=== PATIENT | female | born 1975 | race Caucasian/White ===

== ENCOUNTER 2016-12-05 21:14 | Emergency (ER) | payer BC ==
[~2016-12-05] VITALS: Ht 162.6 cm; Wt 82.0 kg
[2016-12-05 21:19] VITALS: Ht 162.6 cm; Wt 82.0 kg
[2016-12-05] MEDS ORDERED: LOSA1TAB19 PO (21:57)
--- NOTE | 2016-12-05 22:21 | ERD ---
ER Documentation Chief Complaint Date/Time DATE: 12/05/16 TIME: 22:16 Chief Complaint pt is non compliant with HTN HPI This is a 41-year-old female presenting to emergency department for hypertension. Patient was seen earlier by her primary care provider and was told to go to the ER for hypertension management. Patient has been on losartan 50 mg in the past however has not taken it in the past 6 months. Patient went in for a Pap smear and the appointment was canceled due to patient's blood pressure. Upon arrival, patient's blood pressure 180/95 mm Hg. Patient denies headache, dizziness or weakness. Denies chest pain, shortness of breath , difficulty breathing, chest pressure or heart palpitations. Patient states " I feel good." Patient states she has an appointment with her primary care provider tomorrow afternoon. Patient's daughter is here during assessment. ROS All systems reviewed and are negative except as per history of present illness. Medications Home Meds Active Scripts Losartan-Hydrochlorothiazide (Losartan-HCTZ) 50-12.5 Mg Tab, 1 TAB PO DAILY, #5 TAB Prov:WALLY VIVAR NP 12/05/16 Allergies Allergies: Coded Allergies: No Known Allergy (Verified Allergy, Unknown, 03/23/07) Physical Exam Vitals Vital Signs Date Time Temp Pulse Resp B/P Pulse Ox O2 Delivery O2 Flow Rate FiO2 12/05/16 21:19 98.3 92 16 180/95 97 Physical Exam Const: no acute distress, alert Head: Atraumatic Eyes: Normal Conjunctiva ENT: Normal External Ears, Nose and Mouth. Neck: Full range of motion..~ No meningismus. Resp: Clear to auscultation bilaterally. No wheezing, rhonchi or crackles Cardio: Regular rate and rhythm, no murmurs Abd: Soft, non tender, non distended. Normal bowel sounds Skin: No petechiae or rashes Back: No midline or flank tenderness Ext: No cyanosis, or edema Neur: Awake and alert Psych: Normal Mood and Affect Procedures/MDM MDM: 41-year-old female presents emergency department for hypertension management. Patient has been off her hypertension medication losartan 50 mg for the past 6 months. Was seen by her primary care provider today and appointment was canceled and patient was told to go the ER for management. No signs or symptoms of respiratory distress. Vital signs are stable. Blood pressure 180/95 mmHg however patient denies chest pain, chest pressure, heart palpitations, shortness of breath, difficulty breathing, headache, neck pain, confusion, dizziness or fatigue. Patient is asymptomatic at this time. Low suspicion for acute WI, CVA, TIA, hypertensive crisis, intracranial hemorrhage. Patient's diagnosis is hypertension. Patient is appropriate for outpatient management will be given prescription for losartan HCTZ 50 mg #5. Patient states she has an appointment tomorrow afternoon with her primary care provider. Patient's daughter is at bedside and states she is going to the appointment with her. Return to ED for any high fever, chest pain, difficulty breathing, shortness breath, wheezing, vomiting, diarrhea, abdominal pain or any new or worsening symptoms. Patient and patient' s daughter verbalize understanding. All questions answered at discharge. Upper Sorbian translation used during this encounter. Departure Diagnosis: Primary Impression: Hypertension Hypertension type: unspecified secondary hypertension Qualified Code: I15.9 - Secondary hypertension Condition: Stable Patient Instructions: High Blood Pressure (Hypertension) Referrals: ZARA EMERY (PCP) Additional Instructions: Llame al doctor MAANA y anders mara YECENIA PARA DENTRO DE 2-3 CORDERO.Dgale a la secretaria que nosotros le instruimos hacer esta yecenia.Avise o llame si perez condicin se empeora antes de la yecenia. Regresa aqui si peor o no mejor. WALLY VIVAR NP Dec 05, 2016 22:21
== END 2016-12-05 21:57 | disposition home or self-care (01) ==
LOC: E/R 21:14
DX: I15.9 Secondary hypertension, unspecified (principal)
CPT/HCPCS: 99283

== ENCOUNTER 2017-06-05 03:40 | Inpatient (IN) | payer BC ==
[~2017-06-05] VITALS: Ht 149.9 cm; Wt 88.3 kg
[~2017-06-05 03:40] MED LIST: LOSA1TAB22 PO
[2017-06-05 04:17] VITALS: BP 210/108; PULSE 109; RESP 18
[2017-06-05] MEDS ORDERED: LABETALOL HCL 20MG INJ IV STA ×3 (04:18→09:28)
[2017-06-05] MEDS ORDERED: MAGNESIUM SULFATE 20 GM/500 ML 500 ML IV ONE (04:20)
[2017-06-05] MEDS ORDERED: LABETALOL HCL 20MG INJ ONE (04:20)
[2017-06-05] MEDS ORDERED: MAGNESIUM SULFATE 4 GM/100 ML 100 ML ONE (04:20)
[2017-06-05] MEDS: LACTATED RINGER'S 1,000 ML IV SCH ×3 (04:29→23:55)
[2017-06-05] MEDS ORDERED: ACETAMINOPHEN 1000MG/100ML IV 100 ML IVPB ONE (04:30)
[2017-06-05] MEDS ORDERED: MAGNESIUM SULFATE 4 GM/100 ML 100 ML IV ONE (04:30)
[2017-06-05] MEDS ORDERED: BETAMET NA PHOS/AC(6 MG/ML) 5ML INJ IM SCH ×3 (04:30→17:00)
[2017-06-05] MEDS ORDERED: ACETAMINOPHEN 325 MG TAB PO PRN (04:30)
[2017-06-05] MEDS: MAGNESIUM SULFATE 20 GM/500 ML 500 ML IV SCH ×2 (04:55→14:56)
[2017-06-05] MEDS ORDERED: LABETALOL HCL 20MG INJ IV ONE ×2 (05:00→05:30)
--- NOTE | 2017-06-05 05:02 | TRIAGE ---
OB Triage Datetime Report Generated by CPN: 06/05/2017 05:02 Datetime: 06/05/2017 04:14 Stage of : Labor Datetime: 06/05/2017 04:03 Vaginal Exam Membrane Status: Intact Datetime: 06/05/2017 04:00 Time of Arrival: 06/05/2017 03:38 EGA: 25.3 Arrived By: Wheelchair Arrived From: Home Chief Complaint: hx c/s x 2 here with c/o RODRIGUEZ, blurry vision since yesterday and edema chiquis low er ext x 1month Movement: Present Contractions: Denies/Absent Rupture of Membranes: Denies Vaginal Bleeding: None Vaginal Discharge: Denies Recent Sexual Intercouse: Denies Abdominal Trauma: Not Applicable Patient Complaints: Headache; Visual Disturbance; Dependent Edema; Fever; Cough Additional Patient Complaints: Hx c/s @ 23+ wks 3 yrs ago for PIH, chtn and on labetolol and asa t his Time Provider Notified: 06/05/2017 04:00 Provider Notified: Dr Sanders Initial Plan: admit
[2017-06-05 05:23] LABS: BASOPHILS % 0.2 % (0.0-2.0); HEMATOCRIT 30.5 % (37.0-47.0); HEMOGLOBIN 10.9 g/dl (12.0-16.0); LYMPHOCYTES # 0.8 10^3/ul (0.8-2.9); LYMPHOCYTES % 8.1 % (15.0-51.0); MEAN CORPUSCULAR HEMOGLOBIN 31.8 pg (29.0-33.0); MEAN CORPUSCULAR HGB CONC 35.7 g/dl (32.0-37.0); MEAN CORPUSCULAR VOLUME 88.9 fl (82.0-101.0); MEAN PLATELET VOLUME 10.6 fl (7.4-10.4); MONOCYTE # 0.5 10^3/ul (0.3-0.9); MONOCYTES % 5.5 % (0.0-11.0); NEUTROPHILS % 85.4 % (39.0-77.0); PLATELET COUNT 212 10^3/UL (140-415); RED BLOOD COUNT 3.43 10^6/ul (4.20-5.40); RED CELL DISTRIBUTION WIDTH 14.1 % (11.5-14.5); WHITE BLOOD COUNT 9.4 10^3/ul (4.8-10.8)
[2017-06-05 05:32] LABS: ADD UMIC YES; UR AMORPHOUS CRYSTAL FEW /HPF (NONE SEEN); UR ASCORBIC ACID NEGATIVE (NEGATIVE); UR BACTERIA FEW /HPF (NONE SEEN); UR BILIRUBIN (Dip) NEGATIVE (NEGATIVE); UR BLOOD (Dip) NEGATIVE (NEGATIVE); UR CLARITY CLEAR (CLEAR); UR COLOR STRAW (YELLOW); UR GLUCOSE (Dip) NEGATIVE (NEGATIVE); UR KETONES (Dip) NEGATIVE (NEGATIVE); UR LEUKOCYTE ESTERASE (Dip) 3+ Leu/ul (NEGATIVE); UR NITRITE (Dip) NEGATIVE (NEGATIVE); UR RBC 2 /HPF (0-5); UR SPECIFIC GRAVITY (Dip) 1.005 (1.003-1.030); UR TOTAL PROTEIN (Dip) 2+ mg/dl (NEGATIVE); UR UROBILINOGEN (Dip) NEGATIVE (NEGATIVE)
[2017-06-05 05:38] LABS: INR 0.94; PARTIAL THROMBOPLASTIN TIME 29.2 Sec (25.0-35.0); PROTIME 12.7 Sec (11.9-14.9)
--- NOTE | 2017-06-05 05:42 | RADRPT ---
AMENDMENT: 06/05/2017 12:09:21 PM Ariana Rossi M.d Correction: The estimated weight is 861.26 g +/- 129.19 g. PROCEDURE: US OB. CLINICAL INDICATION: PIH TECHNIQUE: Multiple sonographic images of the pelvis were obtained. The images were reviewed on a PACS workstation. COMPARISON: No prior studies are available for comparison. FINDINGS: The cervix is closed with a length of . There is a single viable intrauterine gestation. Cardiac activity is present with 152 beats per min wayne. There is a vertex presentation. Measurements were made in order to determine age. The results are as follows: BPD =6.48 cm HC =23.90 cm AC =21.66 cm FL =4.63 cm. Estimated gestational age of approximately 26 weeks. The gestational age by LMP is 25 weeks, 3 days . The estimated date of delivery is 09/11/2017. The EFW = 161.26 g +/- 129.19 g . Or 1 pound 14 ounces The heart, intracranial contents, spine, stomach, kidneys, bladder and cord insertion are visualized and without abnormality. The placenta is posterior, grade 0. There is no evidence for an abruption or placenta previa. The amniotic fluid volume appears normal. IMPRESSION: Single viable intrauterine gestation of approximately 26 weeks. The estimated date of delivery is 0 09/11/2017 . RPTAT: HCNS Physician Gilson Date Time Electronically viewed and signed by Physician Gilson on 06/05/2017 09:09 CS/
[2017-06-05 05:58] LABS: ALBUMIN 2.9 g/dl (3.3-4.9); ALBUMIN/GLOBULIN RATIO 0.96; BILIRUBIN,INDIRECT 0.5 mg/dl (0-1.1); BILIRUBIN,TOTAL 0.5 mg/dl (0.2-1.3); CALCIUM 8.7 mg/dl (8.4-10.2); CREATININE 0.51 mg/dl (0.44-1.00); POTASSIUM 3.8 mmol/L (3.5-5.1); TOTAL PROTEIN 5.9 g/dl (6.1-8.1); URIC ACID 4.3 mg/dl (3.1-7.9)
[2017-06-05 06:19] LABS: BARBITURATES Negative (NEGATIVE); BENZODIAZEPINES Negative (NEGATIVE); CANNABINOIDS Negative (NEGATIVE); COCAINE Negative (NEGATIVE); OPIATES Negative (NEGATIVE)
[2017-06-05] MEDS ORDERED: CARBOPROST 250 MCG INJ IM PRN ×5 (11:30→21:00)
[2017-06-05] MEDS ORDERED: OXYTOCIN 30 UNITS/LR 500 ML IV PRN ×5 (11:30→21:00)
[2017-06-05] MEDS ORDERED: MISOPROSTOL 200 MCG TAB PR PRN ×5 (11:30→21:00)
[2017-06-05] MEDS ORDERED: CEFAZOLIN 2 GM/50 ML (PMX) 50 ML IV SCH (11:30)
[2017-06-05] MEDS ORDERED: METHYLERGONOVINE 0.2 MG INJ IM PRN ×5 (11:30→21:00)
[2017-06-05] MEDS ORDERED: OXYTOCIN 30 UNITS/LR 500 ML IV SCH ×4 (11:30→20:38)
--- NOTE | 2017-06-05 12:39 | CONS ---
Date/Time of Note Date/Time of Note DATE: 06/05/17 TIME: 12:34 Consultation Date/Type/Reason Admit Date/Time Jun 05, 2017 at 04:05 Date of Consultation: Jun 05, 2017 Type of Consultation: Neonatology Referring Provider: ANA LUISA BUENROSTRO MD Hx of Present Illness Neonatology requested in anticipation of section for -induced hypertension. Mother is 5 1 Term3 Ab 0 living 4 with blood type A+ RPR is positive hepatitis B surface antigen negative HIV negative group B strep positive in the urine. Admitted on 06/05 for PIH and not responding gestational age is 25-3/[address] Buenrostro at [facility]. The estimated weight by ultrasound is 861 g, at 25-3/7 week. She had 2 normal spontaneous vaginal deliveries and subsequently 2 sections both for PIH, the last one in 2013 at 23-6/7 week. Mother received 1 dose of betamethasone and is on magnesium She had 3 years ago a at 23-6/7 week waiting 1 lb. 7 oz. who ended transferred to [facility] for PDA ligation and presently is doing well. I explained to the mother anticipation of expected problems suggest respiratory feeding intracranial hemorrhage infection need for transfusion and eye exam and risk for developmental problems and and obtained consent for possibly needed procedures such as umbilical arterial and venous catheterization PICC line placement of radial artery peripheral artery catheters spinal tap and possible need for PRBC transfusions. Mother appears to have good understanding. Conversation was with the help of a bilingual Tuvaluan-speaking nurse and mother asked good questions and had no questions at the end of the interview. Thank you very much for allowing me to consult in anticipation for the section delivery. Social History Smoking Status: Never smoker Exam/Review of Systems Vital Signs Vitals Vital Signs Date Time Temp Pulse Resp B/P Pulse Ox O2 Delivery O2 Flow Rate FiO2 06/05/17 04:17 100.2 109 18 210/108 Room Air Intake and Output 06/04/17 06/04/17 06/05/17 15:00 23:00 07:00 Intake Total 575 ml Output Total 500 ml Balance 75 ml Results Result Diagram: 06/05/17 0449 06/05/17 0449 Results 24 hrs Laboratory Tests Test 06/05/17 03:45 06/05/17 04:49 Urine Color STRAW Urine Clarity CLEAR Urine pH 7.0 Urine Specific [employer] 1.005 Urine Ketones NEGATIVE Urine Nitrite NEGATIVE Urine Bilirubin NEGATIVE Urine Urobilinogen NEGATIVE Urine Leukocyte Esterase 3+ H Urine Microscopic RBC 2 Urine Microscopic WBC 13 H Urine Amorphous Crystals FEW A Urine Bacteria FEW A Urine Hemoglobin NEGATIVE Urine Glucose NEGATIVE Urine Total Protein 2+ H Urine Opiates Screen Negative Urine Barbiturates Negative Urine Amphetamines Screen Negative Urine Benzodiazepines Screen Negative Urine Cocaine Screen Negative Urine Cannabinoids Negative White Blood Count 9.4 Red Blood Count 3.43 L Hemoglobin 10.9 L Hematocrit 30.5 L Mean Corpuscular Volume 88.9 Mean Corpuscular Hemoglobin 31.8 Mean Corpuscular Hemoglobin Concent 35.7 Red Cell Distribution Width 14.1 Platelet Count 212 Mean Platelet Volume 10.6 H Neutrophils % 85.4 H Lymphocytes % 8.1 L Monocytes % 5.5 Eosinophils % 0.0 Basophils % 0.2 Nucleated Red Blood Cells % 0.0 Neutrophils # 8.0 H Lymphocytes # 0.8 Monocytes # 0.5 Eosinophils # 0.0 Basophils # 0.0 Nucleated Red Blood Cells # 0.0 Prothrombin Time 12.7 Prothrombin Time Ratio 1.0 INR International Normalized Ratio 0.94 Activated Partial Thromboplast Time 29.2 Sodium Level 133 L Potassium Level 3.8 Chloride Level 105 Carbon Dioxide Level 20 L Anion Gap 12 Blood Urea Nitrogen 6 L Creatinine 0.51 Glucose Level 87 Uric Acid 4.3 Calcium Level 8.7 Total Bilirubin 0.5 Direct Bilirubin 0.00 Indirect Bilirubin 0.5 Aspartate Amino Transf (AST/SGOT) 39 Alanine Aminotransferase (ALT/SGPT) 62 Alkaline Phosphatase 58 Total Protein 5.9 L Albumin 2.9 L Globulin 3.00 Albumin/Globulin Ratio 0.96 Medications Medications Current Medications Lactated Ringer's 1,000 ml @ 75 mls/hr [id number] IV Last administered on 04:29; Admin Dose 75 MLS/HR; Start 06/05/17 at 04:18 Magnesium Sulfate (Magnesium Sulfate 20 Gm/500 ml) 500 ml @ 50 mls/hr Q10H IV Last administered on 06/05/17 04:55; Admin Dose 50 MLS/HR; Start 06/05/17 at 05:00 Betamethasone Acet/Betameth SodPhos (Celestone Soluspan) 12 mg Q24H IM Last administered on 06/05/17 05:03; Admin Dose 12 MG; Start 06/05/17 at 04:30; Stop 06/06/17 at 04:31 Acetaminophen 650 mg 650 mg Q4H PRN PO PAIN AND OR ELEVATED TEMP; Start at 04:30 Cefazolin Sodium/ Dextrose 50 ml @ 100 mls/hr ONCE IV ; Start 06/05/17 at 11: 30 Oxytocin/Lactated Ringer's 500 ml @ 0 mls/hr ONCE PRN IV For Hemorrhage Management; Start 06/05/17 at 11:30 Methylergonovine Maleate (Methergine) 0.2 mg ONCE PRN IM VAGINAL BLEEDING; Start 06/05/17 at 11:30 Carboprost Tromethamine (Hemabate) 250 mcg ONCE PRN IM VAGINAL BLEEDING; Start 06/05/17 at 11:30 Misoprostol (Cytotec) 1,000 mcg ONCE PRN HI VAGINAL BLEEDING; Start 06/05/17 at 11:30 XENIA ORDAZ Jun 05, 2017 12:39
[2017-06-05] MEDS ORDERED: morphine SULFATE/PF (10 MG/10 ML) INJ ONE (18:23)
[2017-06-05] MEDS ORDERED: ONDANSETRON 4 MG INJ ONE (18:23)
[2017-06-05] MEDS ORDERED: METOCLOPRAMIDE 10 MG INJ ONE (18:23)
[2017-06-05] MEDS ORDERED: EPHEDrine SULFATE 50 MG/5 ML SYG ONE (18:23)
[2017-06-05] MEDS ORDERED: OXYTOCIN 10 UNIT INJ ONE (18:23)
[2017-06-05] MEDS ORDERED: OXYTOCIN 30 UNITS/LR 500 ML IV ONE (18:23)
[2017-06-05] MEDS ORDERED: LIDOCAINE 2% (SDV) 5 ML INJ ONE (18:46)
[2017-06-05] MEDS ORDERED: MIDAZOLAM 1 MG/ML 2 ML INJ ONE (19:36)
[2017-06-05 20:07] LABS: AADO2 Cord Arterial 84.2 mmHg; Arterial Cord Blood pCO2 42.2 mmHG (25-50); CBA Base Excess -4.8 mmol/L; CBA Oxygen Sat 27.9 mmHG; CBA Total Hemglobin 16.6 g/dl; Fraction OxyHgb Cord Arterial 27.3 %; MODE ROOM AIR; MetHgb Cord Arterial 1.7 %
[2017-06-05] MEDS ORDERED: LACTATED RINGER'S 1,000 ML IV SCH (20:38)
[2017-06-05] MEDS: OXYTOCIN 30 UNITS/LR 500 ML IV SCH (20:38)
[2017-06-05] MEDS ORDERED: OXYCODONE/ACETAMINOPHEN (5/325) TAB PO PRN ×4 (21:00)
[2017-06-05] MEDS ORDERED: HYDROCODONE/APAP (5/325) TAB PO PRN ×4 (21:00)
[2017-06-05] MEDS ORDERED: LANOLIN 7 GM TUBE TOP PRN ×2 (21:00)
[2017-06-05] MEDS ORDERED: CEFAZOLIN 1 GM/50 ML (PMX) 50 ML IVPB SCH ×3 (21:00)
[2017-06-05] MEDS ORDERED: SENNA/DOCUSATE NA (8.6MG/50MG) TAB PO SCH ×2 (21:00)
--- NOTE | 2017-06-05 21:31 | OPR ---
Operative Report Planned Procedure Free Text/Dictation 40 years old T3 PT/1 SAB/0 IAB/0L/4 EDC September 15, 2017 t admitted to [facility] at 25 weeks 3 days of with chief complaint of headache blurry vision with elevated blood pressure on admission 199/109, history of 2 previous section 1 delivery at 25 weeks and a half 3 years ago with section for the same reason. Procedure date Jun 05, 2017 Procedure(s) Repeat Performed by see signature line Flat Screen Worker ann beck Anesthesiologist: STIVEN MC MD Pre-procedure diagnosis 25 weeks 3 days history of 2 previous severe hypertension with superimposed preeclampsia Anesthesia Type: spinal Post-Procedure Post-procedure diagnosis Same as above Findings Live Bab girl to 6 and 8,[id number] Estimated Blood Loss: 600 - 700 mls Specimen(s) Placenta sent to pathology Grafts/Implant(s) none Complication(s) none Pt Condition post procedure: stable Procedure Description Under satisfactory spinal anesthesia patient prepped and draped and placed in supine position. Pfannenstiel incision was made. Incision carried through the subcutaneous tissue. Fascia incised to the length of incision. Rectus muscle divided in midline. Peritoneum exposed and entered to a vertical incision upon entry into the abdominal cavity there was tremendous amount of adhesions between the anterior uterine wall and anterior of abdominal wall which taken down by the sharp and blunt dissection and finally lower segment of the uterus was freed from the adhesions. .] Bladder flap was developed. Transverse incision was made in the lower segment of the uterus. Amniotic sac ruptured, [ clear amniotic fluid noted.] Live baby girl was delivered from [place] breech presentation without any difficulty in usual fashion,.Naso oropharyngeal suction was performed by the complex human resources manager present at the site. Baby handed to the team for immediate attention. Patient received 20 units of Pitocin. Placenta delivered manually intact and send to pathology. Uterine cavity cleaned with a wet sponge and drainage established. Uterus closed in 2 layers using Monocryl #1 in continuous fashion. Peritoneal cavity irrigated with warm saline. Sponge needle instrument reported to be correct. Abdominal peritoneum closed with 2-0 chromic catgut continuously. Fascia closed with #1 PDS in a continuous fashion. Subcutaneous tissue irrigated with warm saline and approximated with 2-0 chromic catgut skin closed with N sorb. Estimated blood loss [6-700 cc]. Urine bag containing [200] mL of [clear] urine. Patient tolerated procedure well and transferred to recovery room in good condition I recommended to transfer her to intensive care unit, with internal medicine consult,. Magnesium sulfate will be continued for 24 hours or longer if needed for seizure prevention. ANA LUISA BUENROSTRO MD Jun 05, 2017 21:13
[2017-06-05 21:47] LABS: RAPID PLASMA REAGIN REACTIVE (NR)
[2017-06-05] MEDS ORDERED: DIPHENHYDRAMINE 50 MG INJ ONE (23:33)
[2017-06-06] VITALS (71 sets, daily range): BP systolic 142–203; BP diastolic 91–126; PULSE 83–117; RESP 9–35
[2017-06-06] MEDS ORDERED: LABETALOL HCL 20MG INJ IV ONE ×2
[2017-06-06] MEDS ORDERED: DIPHENHYDRAMINE 50 MG INJ IV ONE
[2017-06-06] MEDS ORDERED: niCARdipine 25 MG in SOD CHLORIDE 0.9% 240 ML IV SCH ×5 (00:30→09:00)
[2017-06-06] MEDS: OXYTOCIN 30 UNITS/LR 500 ML IV SCH ×2 (00:38→04:38)
--- NOTE | 2017-06-06 01:49 | CONS ---
Date/Time of Note Date/Time of Note DATE: 06/06/17 TIME: 01:48 Assessment/Plan Assessment/Plan Chief Complaint/Hosp Course This is a 41 year female being transferred to the ICU floor for: #1 hypertensive emergency: Status post emergency . At the current time patient does still report a headache though she states it is improved. She reports her vision has returned to normal. Her blood pressure has remained in the 200 systolic after surgery. I did give her a dose of labetalol 10 mg which did improve the blood pressure to approximately 190s systolic. At the current time we will continue her magnesium as per OB recommendations. I will DC her maintenance IV fluids at the current time as she is producing good urine output. I will initiate a Cardene drip with the current goal between 170-185 systolic. We will then lower her blood pressure slowly over the hospital course. #2 headache: Likely secondary to #1. Patient does not have any focal neurological deficits. Will provide her Tylenol for pain. #3 : Patient is status post emergency , further management as per STAMP MACHINE SERVICER. #4 -induced hypertension: We will need to follow patient's blood pressures and determine whether patient would benefit from blood pressure medication on discharge. #5 DVT GI prophylaxis: SCDs, no GI reflux indicated You for this interesting consultation we will follow along with you. Problems: Consultation Date/Type/Reason Admit Date/Time Jun 05, 2017 at 04:05 Date of Consultation: Jun 05, 2017 Reason for Consultation Hypertensive crisis Hx of Present Illness This is a 41-year-old female now who was admitted to [facility] at 25 weeks 3 days of with chief complaint of headache, blurry vision with elevated blood pressure on admission 199/109, history of 2 previous section 1 delivery at 25 weeks and a half 3 years ago with section for the same reason. Patient underwent an emergent C- section today however she remained hypertensive after the delivery. She was reporting headache. Her vision though did improve. She was given oxytocin and magnesium. She is continuing on the magnesium right now and has received her full course of oxybutynin. She does report a headache at this time. Denies any nausea vomiting. Currently denies any chest pain shortness of breath or fevers. Allergies: NKDA Medications: See MAR Const: As per HPI Eyes : As per HPI ENT: No pain, sore throat, congestion, congestion, dysphagia or discharge Respiratory: No shortness of breath, cough, sputum, wheezing, or pleuritic pain Cardiovascular: No chest pain, palpitation, PND, or edema GI : no change in appetite, abdominal pain, nausea, vomiting, diarrhea, constipation, or change in the color his stool Genitourinary: No dysuria, hematuria, flank pain , discharge or CVA tenderness Musculoskeletal: No joint pain, back pain, neck pain, restricted range of motion in neck or joints Skin: No rash, bruising or hives Neuro: As per HPI Endocrine: No polyuria, polydipsia, temperature intolerance Psych: No hallucination, depression, anxiety or suicidal ideation Past Medical History -induced hypertension and a previous as well as a swollen Past Surgical History 3 Family History Significant Family History: no pertinent family hx Social History Alcohol Use: none Smoking Status: Never smoker Drug Use: none Exam/Review of Systems Vital Signs Vitals Vital Signs Date Time Temp Pulse Resp B/P Pulse Ox O2 Delivery O2 Flow Rate FiO2 06/06/17 00:15 98 06/05/17 04:17 100.2 18 210/108 Room Air Intake and Output 06/05/17 06/05/17 06/06/17 15:00 23:00 07:00 Intake Total 1000.0 ml 375 ml 75 ml Output Total 1825 ml 825 ml 350 ml Balance -825.0 ml -450 ml -275 ml Exam General: Patient is laying in bed and appears to be in some mild distress from her headache. HEENT: Atraumatic, normocephalic. The pupils are equal, round and reactive. Extraocular motor are intact Neck: Supple with full range of motion. No rigidity or meningismus Chest: Nontender Lungs: Clear to auscultation bilaterally no crackles rales or wheezing Heart: Normal S1-S2, Regular rhythm and rate. No overt murmurs appreciated Abdomen: Soft , nontender, nondistended , bowel sounds are present. No guarding no rebound tenderness , No masses or organomegaly. No costovertebral temporal angle mass Extremities: Normal to inspection, no edema no cyanosis Neurologic: Normal mental status, speech normal, cranial nerves II through XII are intact, motor and sensory are intact, no focal weakness Results Result Diagram: 06/05/1744806/05/17448 Results 24 hrs Laboratory Tests Test 06/05/17 03:45 06/05/17 04:49 06/05/17 04:50 06/05/17 12:25 Urine Color STRAW Urine Clarity CLEAR Urine pH 7.0 Urine Specific [place] 1.005 Urine Ketones NEGATIVE Urine Nitrite NEGATIVE Urine Bilirubin NEGATIVE Urine Urobilinogen NEGATIVE Urine Leukocyte Esterase 3+ H Urine Microscopic RBC 2 Urine Microscopic WBC 13 H Urine Amorphous Crystals FEW A Urine Bacteria FEW A Urine Hemoglobin NEGATIVE Urine Glucose NEGATIVE Urine Total Protein 2+ H Urine Opiates Screen Negative Urine Barbiturates Negative Urine Amphetamines Screen Negative Urine Benzodiazepines Screen Negative Urine Cocaine Screen Negative Urine Cannabinoids Negative White Blood Count 9.4 Red Blood Count 3.43 L Hemoglobin 10.9 L Hematocrit 30.5 L Mean Corpuscular Volume 88.9 Mean Corpuscular Hemoglobin 31.8 Mean Corpuscular Hemoglobin Concent 35.7 Red Cell Distribution Width 14.1 Platelet Count 212 Mean Platelet Volume 10.6 H Neutrophils % 85.4 H Lymphocytes % 8.1 L Monocytes % 5.5 Eosinophils % 0.0 Basophils % 0.2 Nucleated Red Blood Cells % 0.0 Neutrophils # 8.0 H Lymphocytes # 0.8 Monocytes # 0.5 Eosinophils # 0.0 Basophils # 0.0 Nucleated Red Blood Cells # 0.0 Prothrombin Time 12.7 Prothrombin Time Ratio 1.0 INR International Normalized Ratio 0.94 Activated Partial Thromboplast Time 29.2 Sodium Level 133 L Potassium Level 3.8 Chloride Level 105 Carbon Dioxide Level 20 L Anion Gap 12 Blood Urea Nitrogen 6 L Creatinine 0.51 Glucose Level 87 Uric Acid 4.3 Calcium Level 8.7 Total Bilirubin 0.5 Direct Bilirubin 0.00 Indirect Bilirubin 0.5 Aspartate Amino Transf (AST/SGOT) 39 Alanine Aminotransferase (ALT/SGPT) 62 Alkaline Phosphatase 58 Total Protein 5.9 L Albumin 2.9 L Globulin 3.00 Albumin/Globulin Ratio 0.96 Rapid Plasma Reagin REACTIVE H RPR Titer Additional Testing 1:8 H Hepatitis B Surface Antigen NEGATIVE Magnesium Level 4.8 H Test 06/05/17 19:50 Blood Gas Specimen Source Blood arterial Arterial Blood Date Drawn 06/05/2017 7:51:02 PM Arterial Blood Gas Puncture Site CORD Fabian Test N/A Cord Blood Carboxyhemoglobin 0.6 Cord Arterial Blood pH 7.317 Cord Arterial Blood PCO2 42.2 Cord Arterial Blood PO2 15.0 Cord Arterial Blood HCO3 21.1 L Cord Arterial Blood Base Excess -4.8 POC Cord Arterial Blood O2 Sat 27.9 Cord Arterial Blood Hemoglobin 16.6 Cord Arterial Blood Oxyhemoglobin 27.3 Cord Arterial Blood Methemoglobin 1.7 Blood Gas A-a O2 Differential 84.2 Blood Gas Temperature 37.0 Blood Gas Modality ROOM AIR FiO2 21.0 Blood Gas Critical Value Read Back Cristino HIGGINS R.N Blood Gas Notified Whom MM Blood Gas Notified Time 06/05/2017 8:07:45 PM Medications Medications Current Medications Oxytocin/Lactated Ringer's 500 ml @ 125 mls/hr Q4H IV ; Start 06/05/17 at 20: 38 Acetaminophen/ Hydrocodone Bitart ([place] (5/325)) 1 tab Q4H PRN PO PAIN LEVEL 4 -6; Start 06/05/17 at 21:00 Acetaminophen/ Hydrocodone Bitart ([place] (5/325)) 2 tab Q4H PRN PO PAIN LEVEL 7 -10; Start 06/05/17 at 21:00 Oxycodone/ Acetaminophen (Percocet (5/ 325)) 1 tab Q4H PRN PO PAIN LEVEL 4-6; Start 06/05/17 at 21:00 Oxycodone/ Acetaminophen (Percocet (5/ 325)) 2 tab Q4H PRN PO PAIN LEVEL 7-10; Start 06/05/17 at 21:00 Ibuprofen (Motrin) 600 mg Q6 PO ; Start 06/06/17 at 12:00 Simethicone (Mylicon) 160 mg Q8H PRN PO DISTENSION/GAS/BLOATING; Start at 21:00 Senna/Docusate Sodium (Senokot-S) 1 tab BID PO ; Start 06/05/17 at 21:00 Diphtheria/ Tetanus/Acell Pertussis 0.5 ml 0.5 ml ONCE ONCE IM* ; Start at 09:00; Stop 06/08/17 at 09:01 Lactated Ringer's 1,000 ml @ 125 mls/hr Q8H IV Last administered on t 23:55; Admin Dose 125 MLS/HR; Start 06/05/17 at 20:38 Oxytocin/Lactated Ringer's 500 ml @ 0 mls/hr ONCE PRN IV For Hemorrhage Management; Start 06/05/17 at 21:00 Methylergonovine Maleate (Methergine) 0.2 mg ONCE PRN IM VAGINAL BLEEDING; Start 06/05/17 at 21:00 Carboprost Tromethamine (Hemabate) 250 mcg ONCE PRN IM VAGINAL BLEEDING; Start 06/05/17 at 21:00 Misoprostol 1000 mcg 1,000 mcg ONCE PRN AL VAGINAL BLEEDING; Start 06/05/17 at 21:00 Cefazolin Sodium (Ancef 1 Gm/50 ml (Pmx)) 50 ml @ 100 mls/hr ONCE IVPB ; Start 06/06/17 at 03:00; Stop 06/06/17 at 03:29 Losartan Potassium (Cozaar) 50 mg DAILY PO ; Start 06/06/17 at 09:00 Hydrochlorothiazide 12.5 mg 12.5 mg DAILY PO ; Start 06/06/17 at 09:00 Nicardipine HCl/ Sodium Chloride (Cardene Iv/NS) 250 ml @ 50 mls/hr TITRATE IV ; Start 06/06/17 at 00:30 DADA CHINO Jun 06, 2017 01:49
--- NOTE | 2017-06-06 02:42 | CONS ---
DATE OF ADMISSION: 06/05/2017 DATE OF CONSULTATION: 06/05/2017 I received a phone call from the nurse about Angie Rodríguez. She was admitted apparently last nigh t with very, very severe range high blood pressure with headache and change in vision. She per repo rt is chronic hypertensive. From 4:30 until 10:30 in the morning, she received total of 60 mg of la betalol; however, blood pressures have remained in the 180s/110s. Upon arrival, the patient had a t emperature of 100.4 and she mentioned that she had been feeling some flu-like symptoms. After the T ylenol IV was given, her symptoms were resolved; however, her blood pressures as I mentioned have re mained extremely high. Lab results AST, ALT and creatinine are within normal limits. I reviewed the heart tone which is reassuring. She has no contractions. I spoke multiple times with the nurse and Dr. Buenrostro which is the primary lapel stitcher. The plan is if possible control the blood pressures until 5:30 ____ receive the second dose of betamethasone an d after that, delivery. If her blood pressures increase again to 200 systolic, then I would recommend for hydralazine IV. H owever, please monitor heart tones closely. At any point if she again develops any headache or change in vision, delivery is recommended. If her blood pressures normalizes for any reason, then please contact me again for a new plan. Othe rwise, as long as the patient is asymptomatic and repeat preeclampsia labs are normal, I would consi hector delivery after the second dose of betamethasone. NICU and anesthesiologist should be consulted. Dictated By: EDWARDO VARNER MD ST/NTS Conf#: [id number] DID#: [id number] CC: ANA LUISA BUENROSTRO MD;*EndCC*
[2017-06-06] MEDS: MAGNESIUM SULFATE 20 GM/500 ML 500 ML IV SCH ×3 (02:44→15:10)
[2017-06-06] MEDS ORDERED: CEFAZOLIN 1 GM/50 ML (PMX) 50 ML IVPB SCH ×4 (03:00→09:00)
[2017-06-06] MEDS: LACTATED RINGER'S 1,000 ML IV SCH (04:38)
[2017-06-06 05:33] LABS: BASOPHILS % 0.1 % (0.0-2.0); HEMOGLOBIN 10.6 g/dl (12.0-16.0); LYMPHOCYTES # 0.6 10^3/ul (0.8-2.9); LYMPHOCYTES % 4.6 % (15.0-51.0); MEAN CORPUSCULAR HEMOGLOBIN 31.5 pg (29.0-33.0); MEAN CORPUSCULAR HGB CONC 34.2 g/dl (32.0-37.0); MEAN CORPUSCULAR VOLUME 92.3 fl (82.0-101.0); MEAN PLATELET VOLUME 10.6 fl (7.4-10.4); MONOCYTE # 0.7 10^3/ul (0.3-0.9); MONOCYTES % 5.1 % (0.0-11.0); NEUTROPHIL # 12.2 10^3/ul (1.6-7.5); NEUTROPHILS % 89.4 % (39.0-77.0); PLATELET COUNT 251 10^3/UL (140-415); RED BLOOD COUNT 3.36 10^6/ul (4.20-5.40); RED CELL DISTRIBUTION WIDTH 14.7 % (11.5-14.5); WHITE BLOOD COUNT 13.6 10^3/ul (4.8-10.8)
[2017-06-06] MEDS ORDERED: IBUPROFEN 600 MG TAB PO SCH ×3 (06:00→12:00)
[2017-06-06] MEDS ORDERED: OXYTOCIN 30 UNITS/LR 500 ML IV SCH ×2 (08:58)
[2017-06-06] MEDS ORDERED: SENNA/DOCUSATE NA (8.6MG/50MG) TAB PO SCH (09:00)
[2017-06-06] MEDS ORDERED: OXYTOCIN 30 UNITS/LR 500 ML IV PRN ×2 (09:00)
[2017-06-06] MEDS ORDERED: HYDROCODONE/APAP (5/325) TAB PO PRN ×4 (09:00)
[2017-06-06] MEDS ORDERED: HYDROCHLOROTHIAZIDE 12.5 MG CAP PO SCH ×2 (09:00)
[2017-06-06] MEDS ORDERED: OXYCODONE/ACETAMINOPHEN (5/325) TAB PO PRN ×4 (09:00)
[2017-06-06] MEDS ORDERED: METHYLERGONOVINE 0.2 MG INJ IM PRN ×2 (09:00)
[2017-06-06] MEDS ORDERED: MISOPROSTOL 200 MCG TAB PR PRN ×2 (09:00)
[2017-06-06] MEDS ORDERED: CARBOPROST 250 MCG INJ IM PRN ×2 (09:00)
[2017-06-06] MEDS ORDERED: LANOLIN 7 GM TUBE TOP PRN ×2 (09:00)
[2017-06-06] MEDS ORDERED: LOSARTAN 50 MG TAB PO SCH ×2 (09:00)
--- NOTE | 2017-06-06 09:24 | CONS ---
Date/Time of Note Date/Time of Note DATE: 06/06/17 TIME: 09:11 Assessment/Plan Assessment/Plan Additional Assessment/Plan 41 F presented at 25 weeks with headache, blurred vision, elevated BP to SBP 190s sp emergency CSection yesterday for preeclampsia. Pt transferred to the ICU yesterday for closer blood pressure monitoring. Pt given 1 dose of IV labetalol during her time in the ICU. Cardene drip was never initiated as SBP remained <170. Pt is to be transferred out of the ICU this morning and back to the care of the pediatric nurse practitioner service. This was endorsed to her OB. Pt to be transferred to service. Will obtain CT head prior to transfer appears pt is written for BP hctz and cozaar for BP control Of note, RPR + at 1:8. 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 Hospitalist service will likely sign off tomorrow once head CT returns without ICH and a more extensive syphilis hx will be obtained Consultation Date/Type/Reason Admit Date/Time Jun 05, 2017 at 04:05 Initial Consult Date 06/05/17 Type of Consultation: Hospitalist Referring Provider: ANA LUISA BUENROSTRO MD 24 HR Interval Summary Free Text/Dictation Pt very comfortable this AM. Cardene drip never started as SBP was never >170. Pt denies any headache or blurred vision Exam/Review of Systems Vital Signs Vitals Vital Signs Date Time Temp Pulse Resp B/P Pulse Ox O2 Delivery O2 Flow Rate FiO2 06/06/17 08:30 91 15 170/110 95 Room Air 06/06/17 08:00 98.2 Intake and Output 06/05/17 06/05/17 06/06/17 15:00 23:00 07:00 Intake Total 1000.0 ml 375 ml 1830 ml Output Total 1825 ml 825 ml 610 ml Balance -825.0 ml -450 ml 1220 ml Exam nad no mrg lungs clear no rashes ashby draining yellow urine Results Result Diagram: 06/06/17 0501 06/05/17 0449 Results 24 hrs Laboratory Tests Test 06/05/17 12:25 06/05/17 19:50 06/06/17 01:01 06/06/17 05:01 Magnesium Level 4.8 H 5.9 *H 6.9 *H Blood Gas Specimen Source Blood arterial Arterial Blood Date Drawn 06/05/2017 7:51:02 PM Arterial Blood Gas Puncture Site CORD Fabian Test N/A Cord Blood Carboxyhemoglobin 0.6 Cord Arterial Blood pH 7.317 Cord Arterial Blood PCO2 42.2 Cord Arterial Blood PO2 15.0 Cord Arterial Blood HCO3 21.1 L Cord Arterial Blood Base Excess -4.8 POC Cord Arterial Blood O2 Sat 27.9 Cord Arterial Blood Hemoglobin 16.6 Cord Arterial Blood Oxyhemoglobin 27.3 Cord Arterial Blood Methemoglobin 1.7 Blood Gas A-a O2 Differential 84.2 Blood Gas Temperature 37.0 Blood Gas Modality ROOM AIR FiO2 21.0 Blood Gas Critical Value Read Back Cristino HIGGINS R.N Blood Gas Notified Whom MM Blood Gas Notified Time 06/05/2017 8:07:45 PM White Blood Count 13.6 #H Red Blood Count 3.36 L Hemoglobin 10.6 L Hematocrit 31.0 L Mean Corpuscular Volume 92.3 Mean Corpuscular Hemoglobin 31.5 Mean Corpuscular Hemoglobin Concent 34.2 Red Cell Distribution Width 14.7 H Platelet Count 251 Mean Platelet Volume 10.6 H Neutrophils % 89.4 H Lymphocytes % 4.6 L Monocytes % 5.1 Eosinophils % 0.0 Basophils % 0.1 Nucleated Red Blood Cells % 0.0 Neutrophils # 12.2 H Lymphocytes # 0.6 L Monocytes # 0.7 Eosinophils # 0.0 Basophils # 0.0 Nucleated Red Blood Cells # 0.0 Medications Medications Current Medications Oxytocin/Lactated Ringer's 500 ml @ 125 mls/hr Q4H IV ; Start 06/05/17 at 20: 38 Acetaminophen/ Hydrocodone Bitart ([place] (5/325)) 1 tab Q4H PRN PO PAIN LEVEL 4 -6; Start 06/05/17 at 21:00 Acetaminophen/ Hydrocodone Bitart ([place] (5/325)) 2 tab Q4H PRN PO PAIN LEVEL 7 -10; Start 06/05/17 at 21:00 Oxycodone/ Acetaminophen (Percocet (5/ 325)) 1 tab Q4H PRN PO PAIN LEVEL 4-6; Start 06/05/17 at 21:00 Oxycodone/ Acetaminophen (Percocet (5/ 325)) 2 tab Q4H PRN PO PAIN LEVEL 7-10; Start 06/05/17 at 21:00 Ibuprofen (Motrin) 600 mg Q6 PO ; Start 06/06/17 at 12:00 Simethicone (Mylicon) 160 mg Q8H PRN PO DISTENSION/GAS/BLOATING; Start at 21:00 Senna/Docusate Sodium (Senokot-S) 1 tab BID PO ; Start 06/05/17 at 21:00 Diphtheria/ Tetanus/Acell Pertussis 0.5 ml 0.5 ml ONCE ONCE IM* ; Start at 09:00; Stop 06/08/17 at 09:01 Lactated Ringer's 1,000 ml @ 125 mls/hr Q8H IV Last administered on 23:55; Admin Dose 125 MLS/HR; Start 06/05/17 at 20:38 Oxytocin/Lactated Ringer's 500 ml @ 0 mls/hr ONCE PRN IV For Hemorrhage Management; Start 06/05/17 at 21:00 Methylergonovine Maleate (Methergine) 0.2 mg ONCE PRN IM VAGINAL BLEEDING; Start 06/05/17 at 21:00 Carboprost Tromethamine (Hemabate) 250 mcg ONCE PRN IM VAGINAL BLEEDING; Start 06/05/17 at 21:00 Misoprostol (Cytotec) 1,000 mcg ONCE PRN [place] VAGINAL BLEEDING; Start 06/05/17 at 21:00 Losartan Potassium (Cozaar) 50 mg DAILY PO ; Start 06/06/17 at 09:00 Hydrochlorothiazide 12.5 mg 12.5 mg DAILY PO ; Start 06/06/17 at 09:00 Nicardipine HCl 25 mg/Sodium Chloride 250 ml @ 50 mls/hr TITRATE IV ; Start at 00:30 Magnesium Sulfate (Magnesium Sulfate 20 Gm/500 ml) 500 ml @ 50 mls/hr Q10H IV Last administered on 06/06/17 02:44; Admin Dose 50 MLS/HR; Start 06/06/17 at 02:30 MILTON PLASENCIA MD Jun 06, 2017 09:22
[2017-06-06] MEDS: SENNA/DOCUSATE NA (8.6MG/50MG) TAB PO SCH ×2 (10:16→20:38)
[2017-06-06] MEDS: CEPASTAT LOZENGE MT PRN ×2 (10:16→23:28)
[2017-06-06] MEDS: IBUPROFEN 600 MG TAB PO SCH ×4 (10:28→23:28)
[2017-06-06] MEDS ORDERED: niCARdipine-NS 0.1MG/ML DRIP 200 ML IV SCH (13:30)
[2017-06-06] MEDS ORDERED: AMLODIPINE 10 MG TAB PO SCH (14:30)
--- NOTE | 2017-06-06 17:29 | RADRPT ---
PROCEDURE: CT Brain without contrast. CLINICAL INDICATION: Hypertension. Headache. TECHNIQUE: A multiplanar CT of the brain was performed on a CT scanner utilizing axial imaging fro m the skull base through the vertex without IV contrast. The CTDIvol is 42.69 mGy and the DLP is 63 0.2 mGycm. One or more of the following dose reduction techniques were utilized: Automated exposur e control, adjustment of the mA and/or kV according to patient size, use of iterative reconstruction technique. DICOM images are available. COMPARISON: None FINDINGS: No evidence of intracranial hemorrhage or abnormal extra-axial fluid collection. The brain parenchyma is normal attenuation morphology with preservation of fuller white differentiatio n and age appropriate size of the ventricles and subarachnoid spaces. The basal cisterns, posterior fossa contents, brainstem, craniocervical junction, orbits, pituitary axis, paranasal sinuses, mastoid air cells, and calvarium are unremarkable. IMPRESSION: 1. No intracranial hemorrhage or acute intracranial abnormality. MRI may be considered for further evaluation. RPTAT:AAJJ Physician Rick Date Time Electronically viewed and signed by Physician Rick on 06/06/2017 17:28 JOSH/
[2017-06-06] MEDS: NIFEdipine 10 MG CAP PO SCH ×2 (18:39→23:28)
--- NOTE | 2017-06-06 19:08 | QN ---
Documentation Comment Resting in bed her bp still systolic in the range of 200 and dystocic 100 s, denies head ache ,blurry vision ,her abdomen is soft ,weak bs, good clear urine output she still on mag sulfate,only one gm per hour planning to stop it in 24 hours from start time ,considering transferring to [facility] am. ANA LUISA BUENROSTRO MD Jun 06, 2017 19:08
[2017-06-06 19:44] LABS: ALBUMIN 3.4 g/dl (3.3-4.9); ALBUMIN/GLOBULIN RATIO 1.13; BILIRUBIN,INDIRECT 0.4 mg/dl (0-1.1); BILIRUBIN,TOTAL 0.4 mg/dl (0.2-1.3); CALCIUM 6.7 mg/dl (8.4-10.2); CREATININE 0.66 mg/dl (0.44-1.00); POTASSIUM 4.4 mmol/L (3.5-5.1); TOTAL PROTEIN 6.4 g/dl (6.1-8.1)
[2017-06-07] VITALS (61 sets, daily range): BP systolic 113–173; BP diastolic 75–107; PULSE 86–120; RESP 14–26
[2017-06-07 05:46] LABS: HEMATOCRIT 33.2 % (37.0-47.0); HEMOGLOBIN 11.1 g/dl (12.0-16.0); LYMPHOCYTES # 1.1 10^3/ul (0.8-2.9); LYMPHOCYTES % 13.7 % (15.0-51.0); MEAN CORPUSCULAR HEMOGLOBIN 31.2 pg (29.0-33.0); MEAN CORPUSCULAR HGB CONC 33.4 g/dl (32.0-37.0); MEAN CORPUSCULAR VOLUME 93.3 fl (82.0-101.0); MEAN PLATELET VOLUME 10.3 fl (7.4-10.4); MONOCYTE # 0.8 10^3/ul (0.3-0.9); MONOCYTES % 10.1 % (0.0-11.0); NEUTROPHIL # 6.1 10^3/ul (1.6-7.5); NEUTROPHILS % 75.5 % (39.0-77.0); PLATELET COUNT 222 10^3/UL (140-415); RED BLOOD COUNT 3.56 10^6/ul (4.20-5.40); RED CELL DISTRIBUTION WIDTH 14.6 % (11.5-14.5); WHITE BLOOD COUNT 8.1 10^3/ul (4.8-10.8)
[2017-06-07] MEDS: NIFEdipine 10 MG CAP PO SCH (05:54)
[2017-06-07] MEDS: IBUPROFEN 600 MG TAB PO SCH ×3 (05:54→23:49)
[2017-06-07] MEDS: CEPASTAT LOZENGE MT PRN (05:54)
[2017-06-07 06:51] LABS: ALBUMIN 2.8 g/dl (3.3-4.9); ALBUMIN/GLOBULIN RATIO 1.07; BILIRUBIN,INDIRECT 0.4 mg/dl (0-1.1); BILIRUBIN,TOTAL 0.4 mg/dl (0.2-1.3); CALCIUM 7.1 mg/dl (8.4-10.2); CREATININE 0.54 mg/dl (0.44-1.00); POTASSIUM 4.4 mmol/L (3.5-5.1); TOTAL PROTEIN 5.4 g/dl (6.1-8.1)
--- NOTE | 2017-06-07 07:41 | CONS ---
Date/Time of Note Date/Time of Note DATE: 06/07/17 TIME: 07:34 Assessment/Plan Assessment/Plan Chief Complaint/Hosp Course 35-year-old female who is status post emergency section June 06, 2017 for preeclampsia after she had presented with headache blurred vision and elevated blood pressures. Currently managed as follows: 1. Preeclampsia/severe hypertension: Patient was said to have large urine output overnight, blood pressures has improved since, however patient is on hypertension cocktail that medial may not be appropriate for nursing, hence we will adjust current meds. Will continue to monitor and follow patient for improved BP control. Patient is status post magnesium therapy postdelivery for 48 hours, further magnesium orders per obstetrics. 2. Positive RPR: Deferred decision to treat to the obstetrics team / CT reviewed with no acute abnormality Encourage incentive spirometer use patient is from a medical standpoint to transfer back to the labor and delivery floor. Problems: Consultation Date/Type/Reason Admit Date/Time Jun 05, 2017 at 04:05 Initial Consult Date 06/05/17 Type of Consultation: Hospitalist Referring Provider: ANA LUISA BUENROSTRO MD 24 HR Interval Summary Free Text/Dictation Patient denies pain or new complaints. Blood pressure said to be stable overnight. Patient was never started on Cardene drip. Patient states of had a large urine output through the night. Exam/Review of Systems Vital Signs Vitals Vital Signs Date Time Temp Pulse Resp B/P Pulse Ox O2 Delivery O2 Flow Rate FiO2 06/07/17 06:30 107 17 150/96 96 Room Air 06/07/17 00:00 98.9 Intake and Output 06/06/17 06/06/17 06/07/17 15:00 23:00 07:00 Intake Total 1740 ml 1985 ml 750 ml Output Total 1525 ml 4250 ml 3450 ml Balance 215 ml -2265 ml -2700 ml Exam Constitutional: other (Sleeping but easily arousable) Head: atraumatic, normocephalic Neck: supple Respiratory: clear to auscultation Cardiovascular: No regular rate and rhythm (Mild tachycardia) Gastrointestinal: bowel sounds (Mildly), distended, soft, surgical scars ( Covered with clean and dry dressing) Musculoskeletal: nl extremities to inspection Extremities: No edema Results Result Diagram: 06/07/1712 06/07/1712 Results 24 hrs Laboratory Tests Test 06/06/17 12:28 06/06/17 17:51 06/07/17 05:12 Magnesium Level 6.6 *H 5.0 H 3.4 H Sodium Level 134 L 139 Potassium Level 4.4 4.4 Chloride Level 103 108 Carbon Dioxide Level 22 25 Anion Gap 13 10 Blood Urea Nitrogen 14 11 Creatinine 0.66 0.54 Glucose Level 135 # 85 # Calcium Level 6.7 L 7.1 L Total Bilirubin 0.4 0.4 Direct Bilirubin 0.00 0.00 Indirect Bilirubin 0.4 0.4 Aspartate Amino Transf (AST/SGOT) 47 H 36 Alanine Aminotransferase (ALT/SGPT) 58 52 Alkaline Phosphatase 68 56 Total Protein 6.4 5.4 #L Albumin 3.4 2.8 L Globulin 3.00 2.60 Albumin/Globulin Ratio 1.13 1.07 White Blood Count 8.1 # Red Blood Count 3.56 L Hemoglobin 11.1 L Hematocrit 33.2 L Mean Corpuscular Volume 93.3 Mean Corpuscular Hemoglobin 31.2 Mean Corpuscular Hemoglobin Concent 33.4 Red Cell Distribution Width 14.6 H Platelet Count 222 Mean Platelet Volume 10.3 Neutrophils % 75.5 Lymphocytes % 13.7 L Monocytes % 10.1 Eosinophils % 0.0 Basophils % 0.0 Nucleated Red Blood Cells % 0.0 Neutrophils # 6.1 Lymphocytes # 1.1 Monocytes # 0.8 Eosinophils # 0.0 Basophils # 0.0 Nucleated Red Blood Cells # 0.0 Medications Medications Current Medications Hydrochlorothiazide (Hydrochlorothiazide) 12.5 mg DAILY PO Last administered on 06/06/17t 10:17; Admin Dose 12.5 MG; Start 06/06/17 at 09:00 Acetaminophen/ Hydrocodone Bitart ([place] (5/325)) 1 tab Q4H PRN PO PAIN LEVEL 4 -6; Start 06/06/17 at 09:00 Acetaminophen/ Hydrocodone Bitart ([place] (5/325)) 2 tab Q4H PRN PO PAIN LEVEL 7 -10; Start 06/06/17 at 09:00 Oxycodone/ Acetaminophen (Percocet (5/ 325)) 1 tab Q4H PRN PO PAIN LEVEL 4-6; Start 06/06/17 at 09:00 Oxycodone/ Acetaminophen (Percocet (5/ 325)) 2 tab Q4H PRN PO PAIN LEVEL 7-10; Start 06/06/17 at 09:00 Ibuprofen (Motrin) 600 mg Q6 PO Last administered on 06/07/17 05:54; Admin Dose 600 MG; Start 06/06/17 at 09:00 Simethicone (Mylicon) 160 mg Q8H PRN PO DISTENSION/GAS/BLOATING Last administered on 06/06/17 21:53; Admin Dose 160 MG; Start 06/06/17 at 09:00 Senna/Docusate Sodium (Senokot-S) 1 tab BID PO Last administered on 06/06/17 20:38; Admin Dose 1 TAB; Start 06/06/17 at 09:00 Diphtheria/ Tetanus/Acell Pertussis (Adacel) 0.5 ml ONCE ONCE IM* ; Start 06/08 at 09:00; Stop 06/08/17 at 09:01 Methylergonovine Maleate (Methergine) 0.2 mg ONCE PRN IM VAGINAL BLEEDING; Start 06/06/17 at 09:00 Carboprost Tromethamine (Hemabate) 250 mcg ONCE PRN IM VAGINAL BLEEDING; Start 06/06/17 at 09:00 Misoprostol (Cytotec) 1,000 mcg ONCE PRN [place] VAGINAL BLEEDING; Start 06/06/17 at 09:00 Phenol (Cepastat Lozenge) 1 lozenge Q1H PRN MT COUGH Last administered on 06/07 05:54; Admin Dose 1 LOZENGE; Start 06/06/17 at 10:00 Procedures Procedures Ordering MD: MILTON PLASENCIA MD Location: ICU Room/Bed: [facility] PROCEDURE: CT Brain without contrast. CLINICAL INDICATION: Hypertension. Headache. TECHNIQUE: A multiplanar CT of the brain was performed on a CT scanner utilizing axial imaging from the skull base through the vertex without IV contrast. The CTDIvol is 42.69 mGy and the DLP is 630.2 mGycm. One or more of the following dose reduction techniques were utilized: Automated exposure control, adjustment of the mA and/or kV according to patient size, use of iterative reconstruction technique. DICOM images are available. COMPARISON: None FINDINGS: No evidence of intracranial hemorrhage or abnormal extra-axial fluid collection. The brain parenchyma is normal attenuation morphology with preservation of fuller white differentiation and age appropriate size of the ventricles and subarachnoid spaces. The basal cisterns, posterior fossa contents, brainstem, craniocervical junction , orbits, pituitary axis, paranasal sinuses, mastoid air cells, and calvarium are unremarkable. IMPRESSION: 1. No intracranial hemorrhage or acute intracranial abnormality. MRI may be considered for further evaluation. RPTAT:AAJJ Heather Herman Physician Date Time Electronically viewed and signed by Physician Rick on 06/06/2017 17:28 JOSH/ CC: MILTON PLASENCIA MD, BOLATITO M. Jun 07, 2017 07:41
[2017-06-07] MEDS ORDERED: LABETALOL HCL 20MG INJ IV PRN (08:00)
[2017-06-07] MEDS ORDERED: IBUPROFEN 600 MG TAB PO PRN (08:00)
--- NOTE | 2017-06-07 08:52 | RADRPT ---
PROCEDURE: XR Chest. CLINICAL INDICATION: High blood pressure . Chest pain TECHNIQUE: Single frontal chest x-ray. COMPARISON: CR CHEST 01/21/2014; CR CHEST 01/18/2014 FINDINGS: The lungs are clear of acute infiltrates, edema, effusions, or masses.. The cardiomediastinal silho uette is unremarkable. The osseous structures are intact. IMPRESSION: No acute cardiopulmonary disease. RPTAT: QQ .Akira Wyatt MD, MD Date Time Electronically viewed and signed by .Akira Wyatt MD, MD on 06/07/2017 08:51 .L/
[2017-06-07] MEDS: LABETALOL 200 MG TAB PO SCH ×3 (09:27→21:54)
[2017-06-07] MEDS: NIFEdipine (XL) 30 MG TAB PO SCH ×2 (09:27→21:55)
[2017-06-07] MEDS: SENNA/DOCUSATE NA (8.6MG/50MG) TAB PO SCH ×2 (09:27→21:00)
--- NOTE | 2017-06-07 11:19 | HP ---
Date/Time of Note Date/Time of Note DATE: 06/07/17 TIME: 10:38 OB - History Hx of Present Free Text/Dictation 40 years old female T3 PT 1 SAB 1L/4 admitted to [facility] 25 weeks and 3/7 days with complaint of severe headache blurry vision epigastric pain elevated blood pressure 200/100, she has history of chronic hypertension on medication with superimposed PIH for this , also history of 2 previous section, perinatology consultation recommended delivery, since she has had 2 previous she will undergo repeat for the third time. Chief Complaint: 25 weeks chronic hypertension superimposed PIH Estimated Due Date: Sep 15, 2017 : 5 Para: 4 Spontaneous : 1 Care: Limited Care Ultrasounds: Normal mid trimester US Obstetrical Complications: Pre-eclampsia, Gestational Hypertension, Growth Restriction Medical Complications: None, Cardiovascular Past Family/Social History * Past Medical, Surgical, Family and Obstetric Histories reviewed from chart. Rubella: immune RPR/VDRL: Positive GBS Status: Unknown HBsAG: Negative OB Admission Exam Vital Signs Vital Signs Vital Signs Date Time Temp Pulse Resp B/P Pulse Ox O2 Delivery O2 Flow Rate FiO2 06/07/17 10:15 97 18 117/75 93 06/07/17 10:00 Room Air 06/07/17 08:00 99.0 Physical Exam HEENT: WNL Heart: Rhythm Normal Lungs: Clear, Equal Abdomen: WNL Extremities: Edema Cervical Dilatation: None Station: -2 Membranes: Intact Heart Rate: 130's Accelerations: Accelerations Present Varibility: Moderate Contractions on Admission: None Last 72 hours Lab Results CBC & BMP 06/05/17 04:49 06/06/17 05:01 06/06/17 17:51 06/07/17 05:12 Liver Function Test 06/05/17 04:49 06/06/17 17:51 06/07/17 05:12 Alanine Aminotransferase (ALT/SGPT) 62 58 52 Albumin 2.9 L 3.4 2.8 L Alkaline Phosphatase 58 68 56 Aspartate Amino Transf (AST/SGOT) 39 47 H 36 Direct Bilirubin 0.00 0.00 0.00 Total Protein 5.9 L 6.4 5.4 #L Magnesium Level Test 06/05/17 12:25 06/06/17 01:01 06/06/17 05:01 06/06/17 12:28 Magnesium Level 4.8 H 5.9 *H 6.9 *H 6.6 *H Test 06/06/17 17:51 06/07/17 05:12 Magnesium Level 5.0 H 3.4 H OB Assessment/Plan Reason for admission: other (25 weeks 3 days complicated with chronic hypertension with superimposed PIH perinatologist recommended delivery) Other plan: 40 years old T3 PT 1 SAB/1L/4 history of 2 previous section, 25 weeks and 3 /7 days complicated with elevated blood pressures 200/100 with neurological symptoms perinatologist recommended delivery, Complication of the surgery including but not limited to bowel and bladder injury infection hemorrhage wound hematoma, complication due to severe prematurity explained to the patient she understood the reason for delivery at this stage of all her questions answered she agreed to have the operation, tubal ligation discussed with the her even though patient was interested but legal paperwork was not done on time therefore BTL cannot be done , possibility of future discussed and strongly advised against it. ANA LUISA BUENROSTRO MD Jun 07, 2017 10:52
[2017-06-07] MEDS ORDERED: LANOLIN 7 GM TUBE TOP PRN (16:00)
[2017-06-07] MEDS ORDERED: HYDROCODONE/APAP (5/325) TAB PO PRN ×2 (16:00)
[2017-06-07] MEDS ORDERED: MISOPROSTOL 200 MCG TAB PR PRN (16:00)
[2017-06-07] MEDS ORDERED: METHYLERGONOVINE 0.2 MG INJ IM PRN (16:00)
[2017-06-07] MEDS ORDERED: OXYCODONE/ACETAMINOPHEN (5/325) TAB PO PRN ×2 (16:00)
[2017-06-07] MEDS ORDERED: OXYTOCIN 30 UNITS/LR 500 ML IV PRN (16:00)
[2017-06-07] MEDS ORDERED: CARBOPROST 250 MCG INJ IM PRN (16:00)
[2017-06-07] MEDS: GUAIFENESIN/DM 5ML CUP PO PRN ×2 (16:35→22:00)
[2017-06-07] MEDS ORDERED: INFLUENZA VIRUS VACCINE 0.5 ML SYG IM* ONE (21:00)
[2017-06-08] VITALS: BP 149/88; PULSE 87; RESP 18
[2017-06-08 04:17] VITALS: BP 141/85; PULSE 87
[2017-06-08] MEDS: IBUPROFEN 600 MG TAB PO SCH ×4 (05:46→23:37)
[2017-06-08 09:00] VITALS: BP 142/103; RESP 20
[2017-06-08] MEDS ORDERED: DIPHTH/TET/ACEL PERTUSS (ADULT) 0.5 ML VIAL IM* ONE ×4 (09:00)
[2017-06-08 09:02] LABS: BASOPHILS % 0.2 % (0.0-2.0); HEMATOCRIT 32.4 % (37.0-47.0); HEMOGLOBIN 10.9 g/dl (12.0-16.0); LYMPHOCYTES # 1.7 10^3/ul (0.8-2.9); LYMPHOCYTES % 19.1 % (15.0-51.0); MEAN CORPUSCULAR HEMOGLOBIN 31.9 pg (29.0-33.0); MEAN CORPUSCULAR HGB CONC 33.6 g/dl (32.0-37.0); MEAN CORPUSCULAR VOLUME 94.7 fl (82.0-101.0); MEAN PLATELET VOLUME 10.1 fl (7.4-10.4); MONOCYTE # 0.7 10^3/ul (0.3-0.9); MONOCYTES % 7.8 % (0.0-11.0); NEUTROPHIL # 6.3 10^3/ul (1.6-7.5); NEUTROPHILS % 72.3 % (39.0-77.0); PLATELET COUNT 234 10^3/UL (140-415); RED BLOOD COUNT 3.42 10^6/ul (4.20-5.40); RED CELL DISTRIBUTION WIDTH 15.2 % (11.5-14.5); WHITE BLOOD COUNT 8.6 10^3/ul (4.8-10.8)
[2017-06-08] MEDS: LABETALOL 200 MG TAB PO SCH ×3 (09:03→21:02)
[2017-06-08] MEDS: NIFEdipine (XL) 30 MG TAB PO SCH ×2 (09:04→21:01)
[2017-06-08] MEDS: SENNA/DOCUSATE NA (8.6MG/50MG) TAB PO SCH ×2 (09:04→21:02)
[2017-06-08 09:33] LABS: CALCIUM 8.1 mg/dl (8.4-10.2); CREATININE 0.58 mg/dl (0.44-1.00); POTASSIUM 4.4 mmol/L (3.5-5.1)
[2017-06-08 12:36] VITALS: BP 159/101; PULSE 94; RESP 20
[2017-06-08] MEDS: GUAIFENESIN/DM 5ML CUP PO PRN ×2 (12:36→21:35)
--- NOTE | 2017-06-08 12:40 | PN ---
Date/Time of Note Date/Time of Note DATE: 06/08/17 TIME: 12:37 Assessment/Plan VTE Prophylaxis VTE Prophylaxis Intervention: ambulation, SCD's Lines/Catheters IV Catheter Type (from Nrsg): Saline Lock Urinary Cath still in place: Yes Reason Cath still needed: other (indicate) Assessment/Plan Chief Complaint/Hosp Course 35-year-old female who is status post emergency section June 06, 2017 for preeclampsia after she had presented with headache blurred vision and elevated blood pressures. Currently managed as follows: 1. Preeclampsia/severe hypertension: s/p mag / improved BP control but still suboptimal; will increase dosing 2. Positive RPR: Deferred decision to treat to the obstetrics team / CT reviewed with no acute abnormality / FTA-ABS ordered BP can be further managed as outpt, once patient is stable from OB standpoint, she may be medically discharged. FTA-ABS should be followed outpt. Problems: Subjective 24 Hr Interval Summary Free Text/Dictation no new complaints, looks and feels better Exam/Review of Systems Vital Signs Vitals Vital Signs Date Time Temp Pulse Resp B/P Pulse Ox O2 Delivery O2 Flow Rate FiO2 06/08/17 09:00 98.2 20 142/103 Room Air 06/08/17 04:17 87 06/07/17 14:45 95 Intake and Output 06/07/17 06/07/17 06/08/17 15:00 23:00 07:00 Intake Total 700 ml Output Total 1150 ml 950 ml Balance -450 ml -950 ml Exam Constitutional: other (Sleeping but easily arousable) Head: atraumatic, normocephalic Neck: supple Respiratory: clear to auscultation Cardiovascular: No regular rate and rhythm (Mild tachycardia) Gastrointestinal: bowel sounds (Mildly), distended, soft, surgical scars ( Covered with clean and dry dressing) Musculoskeletal: nl extremities to inspection Extremities: No edema Results Result Diagram: 06/08/17 0831 06/08/17 0831 Results 24 hrs Laboratory Tests Test 06/08/17 08:31 White Blood Count 8.6 Red Blood Count 3.42 L Hemoglobin 10.9 L Hematocrit 32.4 L Mean Corpuscular Volume 94.7 Mean Corpuscular Hemoglobin 31.9 Mean Corpuscular Hemoglobin Concent 33.6 Red Cell Distribution Width 15.2 H Platelet Count 234 Mean Platelet Volume 10.1 Neutrophils % 72.3 Lymphocytes % 19.1 Monocytes % 7.8 Eosinophils % 0.0 Basophils % 0.2 Nucleated Red Blood Cells % 0.0 Neutrophils # 6.3 Lymphocytes # 1.7 Monocytes # 0.7 Eosinophils # 0.0 Basophils # 0.0 Nucleated Red Blood Cells # 0.0 Sodium Level 138 Potassium Level 4.4 Chloride Level 107 Carbon Dioxide Level 23 Anion Gap 12 Blood Urea Nitrogen 10 Creatinine 0.58 Glucose Level 79 Calcium Level 8.1 L Medications Medications Current Medications Phenol (Cepastat Lozenge) 1 lozenge Q1H PRN MT COUGH Last administered on 06/07 05:54; Admin Dose 1 LOZENGE; Start 06/06/17 at 10:00 Nifedipine (Procardia Xl) 30 mg BID PO Last administered on 06/08/17 09:04; Admin Dose 30 MG; Start 06/07/17 at 09:00 Labetalol HCl (Normodyne) 200 mg TID PO Last administered on 06/08/17 09:03; Admin Dose 200 MG; Start 06/07/17 at 09:00 Acetaminophen/ Hydrocodone Bitart ([place] (5/325)) 1 tab Q4H PRN PO PAIN LEVEL 4 -6 Last administered on 06/07/17 16:34; Admin Dose 1 TAB; Start 06/07/17 at 16:00 Acetaminophen/ Hydrocodone Bitart ([place] (5/325)) 2 tab Q4H PRN PO PAIN LEVEL 7 -10; Start 06/07/17 at 16:00 Oxycodone/ Acetaminophen (Percocet (5/ 325)) 1 tab Q4H PRN PO PAIN LEVEL 4-6; Start 06/07/17 at 16:00 Oxycodone/ Acetaminophen (Percocet (5/ 325)) 2 tab Q4H PRN PO PAIN LEVEL 7-10; Start 06/07/17 at 16:00 Ibuprofen (Motrin) 600 mg Q6 PO Last administered on 06/08/17 05:46; Admin Dose 600 MG; Start 06/07/17 at 18:00 Simethicone (Mylicon) 160 mg Q8H PRN PO DISTENSION/GAS/BLOATING; Start at 16:00 Senna/Docusate Sodium (Senokot-S) 1 tab BID PO Last administered on 06/08/17 09:04; Admin Dose 1 TAB; Start 06/07/17 at 21:00 Diphtheria/ Tetanus/Acell Pertussis 0.5 ml 0.5 ml ONCE ONCE IM* ; Start at 09:00; Stop 06/10/17 at 09:01 Oxytocin/Lactated Ringer's 500 ml @ 0 mls/hr ONCE PRN IV For Hemorrhage Management; Start 06/07/17 at 16:00 Methylergonovine Maleate (Methergine) 0.2 mg ONCE PRN IM VAGINAL BLEEDING; Start 06/07/17 at 16:00 Carboprost Tromethamine (Hemabate) 250 mcg ONCE PRN IM VAGINAL BLEEDING; Start 06/07/17 at 16:00 Misoprostol (Cytotec) 1,000 mcg ONCE PRN [place] VAGINAL BLEEDING; Start 06/07/17 at 16:00 Guaifenesin/ Dextromethorphan (Robitussin Dm Liquid Cup) 10 ml Q4H PRN PO COUGH Last administered on 06/07/17 22:00; Admin Dose 10 ML; Start 06/07/17 at 16:00 CARYN GUAMAN Jun 08, 2017 12:40
--- NOTE | 2017-06-08 13:35 | QN ---
Documentation Comment Post date 3 Her blood pressures are running on high 140s over 90s and 100 denies headache blurry vision epigastric pain her abdomen is soft bowel sounds present had normal bowel movement incision inspected dry and healing well, currently on labetalol 200 mg 3 times daily , Procardia XL 30 mg twice daily ,we will continue monitoring her blood pressures if staying within this range she may be discharged home ANA LUISA Young MD Jun 08, 2017 13:35
[2017-06-08 15:40] VITALS: BP 150/90; RESP 18
[2017-06-08 19:33] VITALS: BP 147/89; PULSE 86; RESP 18
[2017-06-09 00:24] VITALS: BP 153/96; PULSE 78; RESP 18
[2017-06-09 04:45] VITALS: BP 162/96; RESP 20
[2017-06-09] MEDS: IBUPROFEN 600 MG TAB PO SCH ×2 (05:23→11:32)
[2017-06-09 06:13] VITALS: BP 146/78; PULSE 98; RESP 21
[2017-06-09 08:10] VITALS: BP 121/82; PULSE 98; RESP 19
[2017-06-09] MEDS: SENNA/DOCUSATE NA (8.6MG/50MG) TAB PO SCH (09:00)
[2017-06-09 09:01] VITALS: BP 159/93; PULSE 101
[2017-06-09] MEDS: LABETALOL 200 MG TAB PO SCH ×2 (09:01→13:16)
[2017-06-09] MEDS: NIFEdipine (XL) 30 MG TAB PO SCH (09:01)
--- NOTE | 2017-06-09 09:22 | PN ---
Date/Time of Note Date/Time of Note DATE: 06/09/17 TIME: 09:22 Assessment/Plan VTE Prophylaxis VTE Prophylaxis Intervention: ambulation, SCD's Lines/Catheters IV Catheter Type (from Nrsg): Saline Lock Urinary Cath still in place: Yes Assessment/Plan Chief Complaint/Hosp Course 35-year-old female who is status post emergency section June 06, 2017 for preeclampsia after she had presented with headache blurred vision and elevated blood pressures. Currently managed as follows: 1. Preeclampsia/severe hypertension: s/p mag / improved BP control but still suboptimal; will increase dosing 2. Positive RPR: Deferred decision to treat to the obstetrics team / CT reviewed with no acute abnormality / FTA-ABS ordered BP can be further managed as outpt, once patient is stable from OB standpoint, she may be medically discharged. FTA-ABS should be followed outpt. Problems: Subjective 24 Hr Interval Summary Constitutional: improved, no complaints Exam/Review of Systems Vital Signs Vitals Vital Signs Date Time Temp Pulse Resp B/P Pulse Ox O2 Delivery O2 Flow Rate FiO2 06/09/17 08:10 98.5 98 19 121/82 Room Air 06/07/17 14:45 95 Exam Head: atraumatic, normocephalic Neck: supple Respiratory: clear to auscultation Cardiovascular: regular rate and rhythm Gastrointestinal: bowel sounds Mildly distended, soft, surgical scars clean and dry Musculoskeletal: nl extremities to inspection Extremities: No edema Results Result Diagram: 06/08/1783006/08/17 0831 Medications Medications Current Medications Phenol (Cepastat Lozenge) 1 lozenge Q1H PRN MT COUGH Last administered on 06/07 05:54; Admin Dose 1 LOZENGE; Start 06/06/17 at 10:00 Labetalol HCl (Normodyne) 200 mg TID PO Last administered on 06/09/17 09:01; Admin Dose 200 MG; Start 06/07/17 at 09:00 Acetaminophen/ Hydrocodone Bitart ([place] (5/325)) 1 tab Q4H PRN PO PAIN LEVEL 4 -6 Last administered on 06/07/17 16:34; Admin Dose 1 TAB; Start 06/07/17 at 16:00 Acetaminophen/ Hydrocodone Bitart ([place] (5/325)) 2 tab Q4H PRN PO PAIN LEVEL 7 -10; Start 06/07/17 at 16:00 Oxycodone/ Acetaminophen (Percocet (5/ 325)) 1 tab Q4H PRN PO PAIN LEVEL 4-6; Start 06/07/17 at 16:00 Oxycodone/ Acetaminophen (Percocet (5/ 325)) 2 tab Q4H PRN PO PAIN LEVEL 7-10; Start 06/07/17 at 16:00 Ibuprofen (Motrin) 600 mg Q6 PO Last administered on 06/09/17 05:23; Admin Dose 600 MG; Start 06/07/17 at 18:00 Simethicone (Mylicon) 160 mg Q8H PRN PO DISTENSION/GAS/BLOATING; Start at 16:00 Senna/Docusate Sodium (Senokot-S) 1 tab BID PO Last administered on 06/09/17 09:00; Admin Dose 1 TAB; Start 06/07/17 at 21:00 Diphtheria/ Tetanus/Acell Pertussis 0.5 ml 0.5 ml ONCE ONCE IM* ; Start at 09:00; Stop 06/10/17 at 09:01 Oxytocin/Lactated Ringer's 500 ml @ 0 mls/hr ONCE PRN IV For Hemorrhage Management; Start 06/07/17 at 16:00 Methylergonovine Maleate (Methergine) 0.2 mg ONCE PRN IM VAGINAL BLEEDING; Start 06/07/17 at 16:00 Carboprost Tromethamine (Hemabate) 250 mcg ONCE PRN IM VAGINAL BLEEDING; Start 06/07/17 at 16:00 Misoprostol (Cytotec) 1,000 mcg ONCE PRN AK VAGINAL BLEEDING; Start 06/07/17 at 16:00 Guaifenesin/ Dextromethorphan (Robitussin Dm Liquid Cup) 10 ml Q4H PRN PO COUGH Last administered on 06/08/17 21:35; Admin Dose 10 ML; Start 06/07/17 at 16:00 Nifedipine (Procardia Xl) 60 mg BID PO Last administered on 06/09/17 09:01; Admin Dose 60 MG; Start 06/08/17 at 21:00 CARYN GUAMAN Jun 09, 2017 09:22
--- NOTE | 2017-06-09 10:50 | PD.PPDC ---
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
--- NOTE | 2017-06-09 11:00 | DS ---
Date/Time of Note Date/Time of Note DATE: 06/09/17 TIME: 10:52 Discharge Summary Admission/Discharge Info Admit Date/Time Jun 05, 2017 at 04:05 Discharge Date/Time June 09, 2017 at 11 AM Discharge Diagnosis Post repeat complicated with PIH history of essential hypertension Patient Condition: Good Consults Internal medicine Procedures Repeat section Hx of Present Illness 25 weeks chronic hypertension superimposed -induced hypertension perinatologist recommended delivery at 25 weeks gestation. Hospital Course Post recovery rather satisfactory, though blood pressure still elevated denies headache blurry vision or epigastric pain , she is discharged home with follow-up instructions to be seen at the clinic in 3 days, advised to return to the hospital or nearest emergency room for any episodes of severe headache blurry vision or epigastric pain or return to [facility]. Home Meds Active Scripts Losartan-Hydrochlorothiazide (Losartan-HCTZ) 50-12.5 Mg Tab, 1 TAB PO DAILY, #5 TAB Prov:WALLY VIVAR NP 12/05/16 Follow-up Plan instruction given recommended to be seen at the clinic in 3 days [address] Care Provider [address] Bates Time spent on discharge: < 30 minutes ANA LUISA BUENROSTRO MD Jun 09, 2017 11:00
[2017-06-09 13:16] VITALS: BP 154/94; PULSE 100; RESP 19
[2017-06-10] MEDS ORDERED: DIPHTH/TET/ACEL PERTUSS (ADULT) 0.5 ML VIAL IM* ONE (09:00)
[2017-06-10 19:41] LABS: FLUORESCENT TREPONEMAL AB NON-REACTIVE (NON-REACTIVE)
== END 2017-06-09 19:12 | disposition home or self-care (01) | DRG 765 ==
LOC: OBT 03:40 → L-D 03:40 → OBT 04:05 → L-D 04:05 → ICU 06-06 00:11 → PP1 06-07 14:47
PROVIDERS: ADMIT Obstetrics & Gynecology; ATTEND Obstetrics & Gynecology
PROC: 10D00Z1 Extraction of Products of Conception, Low, Open Approach (ICD-10-PCS; principal; 2017-06-05 19:15)
DX: O34.211 Maternal care for low transverse scar from previous cesarean delivery (principal); O60.13X0 Preterm labor second trimester with preterm delivery third trimester, not applicable or unspecified; O99.214 Obesity complicating childbirth; E66.9 Obesity, unspecified; O14.94 Unspecified pre-eclampsia, complicating childbirth; Z68.39 Body mass index [BMI] 39.0-39.9, adult; Z3A.25 25 weeks gestation of pregnancy; Z37.0 Single live birth
CPT/HCPCS: 36600; 70450; 71010; 76815; 80048; 80053; 80307; 81001; 82803; 83735; 84560; 85025; 85610; 85730; 86592; 86850; 86860; 86870; 86880; 86900; 86901; 86970; 86978; 87081; 87285; 87340; 88307; 90686; 90715; 99464; G0463; J0131; J0690; J0702; J1200; J2250; J2274; J2405; J2590; J2765; J3475; J7050; J7120